=== PATIENT | male | born 1985 | race Caucasian/White ===

== ENCOUNTER 2025-07-05 13:06 | Emergency (ER) | payer OTHER, SELFPAY ==
[2025-07-05 13:14] VITALS: BP 148/93
[2025-07-05 13:28] VITALS: BMI 22.2
[2025-07-05 14:00] VITALS: BP 161/95
[2025-07-05 14:19] VITALS: BP 157/90
--- NOTE | 2025-07-05 14:47 | EDRN ---
Per pt request box lunch given.
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
== END 2025-07-05 15:40 | disposition home or self-care (01) ==
LOC: EMR 13:06
PROVIDERS: EMERGENCY PHYSICIAN Emergency Medicine
DX: R56.9 Unspecified convulsions (principal); Z87.820 Personal history of traumatic brain injury
CPT/HCPCS: 99282